=== PATIENT | female | born 1975 | race Caucasian/White ===

== ENCOUNTER 2022-02-09 08:25 | Day surgery (SDC) | payer BC ==
[2022-02-08 03:09] VITALS: BMI 31.6
[2022-02-09] MEDS ORDERED: Midazolam HCl 2 mg/2 ml Vial ONE (09:30)
[2022-02-09] MEDS ORDERED: fentaNYL PF 100 MCG/2 ML SYRINGE ONE (09:45)
[2022-02-09] MEDS ORDERED: HYDROmorphone 0.5 MG/0.5 ML SYRINGE ONE ×4 (09:45→11:25)
[2022-02-09] MEDS ORDERED: Bupivacaine/Epinephrine 0.25% 30 ML VIAL ONE (09:56)
[2022-02-09] MEDS ORDERED: cefOXitin 2 GM VIAL ONE (10:04)
[2022-02-09] MEDS ORDERED: Sodium Chloride 0.9% 100 ML ONE (10:05)
== END 2022-02-09 14:15 | disposition home or self-care (01) ==
LOC: SDC 08:25
PROVIDERS: ATTEND Surgery
PROC: 0FT44ZZ Resection of Gallbladder, Percutaneous Endoscopic Approach (ICD-10-PCS; principal; 2022-02-09)
DX: K81.1 Chronic cholecystitis (principal); K82.8 Other specified diseases of gallbladder; F17.210 Nicotine dependence, cigarettes, uncomplicated; Z79.890 Hormone replacement therapy; Z79.899 Other long term (current) drug therapy
CPT/HCPCS: 88304; C1889; J0694; J1170; J2250; J3490